=== PATIENT | male | born 1950 | race Caucasian/White ===

== ENCOUNTER 2018-07-16 14:49 | Emergency (ER) | payer OTHER ==
[~2018-07-16] VITALS: Ht 185.4 cm; Wt 67.1 kg
[2018-07-16 15:01] VITALS: BP_SYST 163
[2018-07-16] MEDS ORDERED: IBUPROFEN 600 MG TABLET PO ONE (15:45)
[2018-07-16 16:25] VITALS: BP_SYST 163
== END 2018-07-16 16:25 | disposition home or self-care (01) ==
LOC: SED 14:49
DX: S60.811A Abrasion of right wrist, initial encounter (principal); R07.89 Other chest pain; V43.52XA Car driver injured in collision with other type car in traffic accident, initial encounter; Y93.89 Activity, other specified; Y92.410 Unspecified street and highway as the place of occurrence of the external cause; Y99.8 Other external cause status; R03.0 Elevated blood-pressure reading, without diagnosis of hypertension
CPT/HCPCS: 71045; 99283

== ENCOUNTER 2023-06-29 21:58 | Inpatient (IN) | payer OTHER ==
[~2023-06-29] VITALS: Ht 185.4 cm; Wt 67.1 kg
[2023-06-29 22:06] VITALS: BP_SYST 180; PULSE 96; RESP 18; TEMP 97.5; O2SAT 97
[2023-06-30] MEDS: D10W 1,000 ML IV SCH (00:17)
[2023-06-30] MEDS: DEXTROSE 50% JECT 50 ML DISP.SYRIN IVP ONE (00:38)
[2023-06-30] MEDS: KETOROLAC TROMETHAMINE 60 MG/2 ML VIAL IM ONE (00:43)
[2023-06-30 05:12] LABS: BILIRUBIN,URINE NEGATIVE (NEGATIVE); BLOOD, URINE NEGATIVE (NEGATIVE); CLARITY/URINE CLEAR (CLEAR); COLOR,URINE YELLOW (YELLOW); GLUCOSE,URINE 3+ (NEGATIVE); KETONES,URINE NEGATIVE (NEGATIVE); LEUKOCYTE ESTERASE ,URINE NEGATIVE (NEGATIVE); NITRITE, URINE NEGATIVE (NEGATIVE); PROTEIN URINE NEGATIVE (NEGATIVE); UROBILINOGEN,URINE 0.2 (0.2-1.0)
[2023-06-30 05:15] LABS: BASOPHILS % (AUTO) 0.5 % (0.0-2.0); EOSINOPHILS % (AUTO) 0.6 % (0.0-4.0); HEMATOCRIT 36.9 % (36-54); HEMOGLOBIN 12.4 g/dL (14.0-18.0); LYMPHOCYTES # (AUTO) 1.2 K/uL (1.0-5.5); LYMPHOCYTES % (AUTO) 16.9 % (20.5-51.5); MEAN CORPUSCULAR HEMOGLOBIN 29 pg (27-31); MEAN CORPUSCULAR HGB CONC 34 % (32-36); MEAN CORPUSCULAR VOLUME 86 fL (79.0-98.0); MONOCYTES # (AUTO) 0.7 K/uL (0.0-1.0); MONOCYTES % (AUTO) 9.8 % (1.7-9.3); NEUTROPHILS # (AUTO) 5.3 K/uL (1.8-7.7); NEUTROPHILS % (AUTO) 72.2 % (40.0-70.0); PLATELET COUNT (AUTO) 175 K/uL (130-430); RED BLOOD CELL COUNT(AUTO) 4.31 MIL/uL (4.2-6.2); RED CELL DISTRIBUTION WIDTH 13.9 % (9.0-15.0); WHITE BLOOD COUNT (AUTO) 7.4 K/uL (4.8-10.8)
[2023-06-30 05:38] LABS: ANION GAP 7 (5-15); CALCIUM 8.4 mg/dL (8.4-11.0); CARBON DIOXIDE 29 mmol/L (23-29); CHLORIDE 96 mmol/L (98-107); CREATININE 0.98 mg/dL (0.55-1.30); GLUCOSE 387 mg/dL (74-106); POTASSIUM 4.2 mmol/L (3.5-5.1); SODIUM SERUM 132 mmol/L (136-145); UREA NITROGEN, BLOOD 12 mg/dL (8-21)
[2023-06-30 05:42] LABS: ALANINE AMINOTRANSFERASE 27 U/L (12-78); ALBUMIN 3.2 g/dL (3.4-4.8); ASPARTATE AMINOTRANSFERASE 9 U/L (10-37); BILIRUBIN,DIRECT 0.2 mg/dL (0.0-0.3); TOTAL BILIRUBIN 0.5 mg/dL (0.0-1.0); TOTAL PROTEIN, SERUM 6.9 g/dL (6.4-8.3)
[2023-06-30] MEDS ORDERED: HYDROcodone/ACETAMIN 5-325 MG TAB (NORCO/ VICODIN) PO PRN (08:30)
[2023-06-30] MEDS ORDERED: ACETAMINOPHEN 325 MG TABLET PO PRN ×2 (08:30→10:15)
[2023-06-30] MEDS ORDERED: MORPHINE 2 MG/ML INJ. SYRINGE IVP PRN (08:30)
[2023-06-30] MEDS ORDERED: ONDANSETRON HCL 4 MG/2 ML VIAL IVP PRN (08:30)
[2023-06-30] MEDS ORDERED: GLUCOSE (DEXTROSE) ORAL GEL -Adults PO PRN (08:45)
[2023-06-30] MEDS ORDERED: DEXTROSE 50% JECT 50 ML DISP.SYRIN IVP PRN (08:45)
[2023-06-30] MEDS ORDERED: INSNLG7030 SUBCUT (09:00)
[2023-06-30] MEDS ORDERED: TAMS0.4C96 PO (09:00)
[2023-06-30] MEDS ORDERED: ROSU40TA23 PO (09:00)
[2023-06-30] MEDS ORDERED: LATA2.5D14 EACH EYE (09:00)
[2023-06-30] MEDS ORDERED: LISI2.5T48 PO (09:00)
[2023-06-30] MEDS ORDERED: HUM10VIA3 SUBCUT (10:25)
[2023-06-30] MEDS ORDERED: INSULIN REGULAR, HUMAN 10 UNITS/0.1 ML, 3 ML VIAL ONE (12:58)
[2023-06-30] MEDS: INSULIN REGULAR, HUMAN 100 UNITS/ML, 3 ML VIAL (humuLIN R) SUBCUT PRN (13:00)
[2023-06-30 15:40] VITALS: BP_SYST 113; PULSE 77; RESP 18; TEMP 99.3; O2SAT 98
[2023-06-30 15:47] VITALS: BP_SYST 113; PULSE 77; RESP 18; TEMP 99.3
[2023-06-30 15:58] VITALS: O2SAT 99
[2023-06-30] MEDS ORDERED: INSULIN GLARGINE 100 UNITS/ML, 10 ML VIAL SUBCUT ONE (16:45)
[2023-06-30 20:36] VITALS: BP_SYST 115; PULSE 106; RESP 18; TEMP 98.9
[2023-06-30 20:37] VITALS: BP_SYST 115; PULSE 106; RESP 18; TEMP 98.9; O2SAT 98
[2023-06-30 20:39] VITALS: O2SAT 98
[2023-06-30] MEDS: INSULIN GLARGINE 100 UNITS/ML, 10 ML VIAL SUBCUT SCH (22:19)
[2023-07-01 00:16] VITALS: BP_SYST 114; PULSE 90; RESP 16; TEMP 97.8; O2SAT 99
[2023-07-01 06:44] LABS: BASOPHILS % (AUTO) 0.5 % (0.0-2.0); EOSINOPHILS # (AUTO) 0.2 K/uL (0.0-0.4); EOSINOPHILS % (AUTO) 3.4 % (0.0-4.0); HEMOGLOBIN 12.2 g/dL (14.0-18.0); LYMPHOCYTES # (AUTO) 1.5 K/uL (1.0-5.5); LYMPHOCYTES % (AUTO) 24.4 % (20.5-51.5); MEAN CORPUSCULAR HEMOGLOBIN 29 pg (27-31); MEAN CORPUSCULAR HGB CONC 34 % (32-36); MEAN CORPUSCULAR VOLUME 85 fL (79.0-98.0); MONOCYTES # (AUTO) 0.8 K/uL (0.0-1.0); MONOCYTES % (AUTO) 13.1 % (1.7-9.3); NEUTROPHILS # (AUTO) 3.5 K/uL (1.8-7.7); NEUTROPHILS % (AUTO) 58.6 % (40.0-70.0); PLATELET COUNT (AUTO) 161 K/uL (130-430); RED BLOOD CELL COUNT(AUTO) 4.23 MIL/uL (4.2-6.2); RED CELL DISTRIBUTION WIDTH 13.9 % (9.0-15.0)
[2023-07-01 07:00] LABS: PROTHROMBIN TIME 10.3 SECS (9.5-12.5)
[2023-07-01 07:16] LABS: ALANINE AMINOTRANSFERASE 26 U/L (12-78); ALBUMIN 2.8 g/dL (3.4-4.8); ANION GAP 5 (5-15); ASPARTATE AMINOTRANSFERASE < 5 U/L (10-37); CALCIUM 8.6 mg/dL (8.4-11.0); CARBON DIOXIDE 30 mmol/L (23-29); CHLORIDE 100 mmol/L (98-107); CREATININE 1.01 mg/dL (0.55-1.30); GLUCOSE 242 mg/dL (74-106); POTASSIUM 4.6 mmol/L (3.5-5.1); SODIUM SERUM 135 mmol/L (136-145); TOTAL BILIRUBIN 0.6 mg/dL (0.0-1.0); TOTAL PROTEIN, SERUM 6.5 g/dL (6.4-8.3); UREA NITROGEN, BLOOD 17 mg/dL (8-21)
[2023-07-01 08:06] LABS: HEPATITIS B CORE AB, TOTAL Negative (Negative); HEPATITIS B SURFACE AG Negative (Negative); HEPATITIS C VIRUS AB Non Reactive (Non Reactive)
[2023-07-01] MEDS: ATORVASTATIN 20 MG TABLET PO SCH (08:56)
[2023-07-01] MEDS: HYDROcodone/ACETAMIN 10-325 MG TAB PO PRN (08:56)
[2023-07-01] MEDS: TAMSULOSIN HCL 0.4 MG CAP PO SCH (08:56)
[2023-07-01 09:00] VITALS: BP_SYST 131; PULSE 111; RESP 20; TEMP 97.5; O2SAT 94; O2SAT 97
[2023-07-01 11:55] VITALS: BP_SYST 107; PULSE 90; RESP 16; TEMP 98.4; O2SAT 96
[2023-07-01] MEDS: INSULIN GLARGINE 100 UNITS/ML, 10 ML VIAL SUBCUT ONE (16:42)
[2023-07-01 16:50] VITALS: BP_SYST 106; PULSE 98; RESP 17; TEMP 98.4; O2SAT 93
[2023-07-01 19:54] VITALS: BP_SYST 119; PULSE 98; RESP 16; TEMP 98; O2SAT 98
[2023-07-01 20:00] VITALS: O2SAT 98
[2023-07-02] VITALS (7 sets, daily range): BP systolic 103–132; PULSE 85–100; RESP 16–18; TEMP 97.7–98.6; O2SAT 98–100
[2023-07-02] MEDS ORDERED: ROCURONIUM BROMIDE 10 MG/ML (ZEMURON) ONE (12:05)
[2023-07-02] MEDS ORDERED: PHENYLEPHRINE HCL 10 MG/ML VIAL (NEOSYNEPHRINE) ONE (12:05)
[2023-07-02] MEDS ORDERED: CEFAZOLIN 1 GM IVPB PREMIX 50 ML IV ONE (12:05)
[2023-07-02] MEDS ORDERED: TRANEXAMIC ACID 1,000 MG/10 ML VIAL ONE (12:05)
[2023-07-02] MEDS ORDERED: VANCOMYCIN HCL 1000 MG/VIAL IV ONE (12:05)
[2023-07-02] MEDS ORDERED: NEOSTIGMINE METHYLSULFATE 1 MG/ML, 10 ML VIAL ONE (12:05)
[2023-07-02] MEDS ORDERED: KETOROLAC TROMETHAMINE 30 MG VIAL ONE (12:05)
[2023-07-02] MEDS ORDERED: PROPOFOL 200MG/ 20ML VIAL (DIPRIVAN) IV ONE (12:05)
[2023-07-02] MEDS ORDERED: CEFAZOLIN 2 GM IVPB PREMIX 50 ML IV ONE (12:05)
[2023-07-02] MEDS ORDERED: BUPIVACAINE /PF 0.25% 30 ML VIAL INJ ONE (12:05)
[2023-07-02] MEDS ORDERED: SEVOFLURANE 15 MIN GAS INH ONE (12:05)
[2023-07-02] MEDS ORDERED: SUGAMMADEX SODIUM 200 MG/2 ML VIAL IV ONE (12:05)
[2023-07-02] MEDS ORDERED: ONDANSETRON HCL 4 MG/2 ML VIAL ONE (12:05)
[2023-07-02] MEDS ORDERED: NS 1000 ML IV.SOLN IV ONE (12:05)
[2023-07-02] MEDS ORDERED: MIDAZOLAM HCL 5 MG/5 ML VIAL ONE (12:05)
[2023-07-02] MEDS ORDERED: LIDOCAINE/EPI 1% 1:100000 20 ML VIAL ONE (12:05)
[2023-07-02] MEDS ORDERED: fentaNYL CITRATE/PF 100 MCG/2 ML AMP ONE (12:05)
[2023-07-02 12:17] LABS: BASOPHILS # (AUTO) 0.1 K/uL (0.0-0.2); BASOPHILS % (AUTO) 0.7 % (0.0-2.0); EOSINOPHILS # (AUTO) 0.2 K/uL (0.0-0.4); EOSINOPHILS % (AUTO) 2.1 % (0.0-4.0); HEMATOCRIT 34.4 % (36-54); HEMOGLOBIN 11.4 g/dL (14.0-18.0); LYMPHOCYTES # (AUTO) 1.8 K/uL (1.0-5.5); LYMPHOCYTES % (AUTO) 20.8 % (20.5-51.5); MEAN CORPUSCULAR HEMOGLOBIN 28 pg (27-31); MEAN CORPUSCULAR HGB CONC 33 % (32-36); MEAN CORPUSCULAR VOLUME 86 fL (79.0-98.0); MONOCYTES # (AUTO) 0.8 K/uL (0.0-1.0); MONOCYTES % (AUTO) 8.7 % (1.7-9.3); NEUTROPHILS # (AUTO) 5.9 K/uL (1.8-7.7); NEUTROPHILS % (AUTO) 67.7 % (40.0-70.0); PLATELET COUNT (AUTO) 162 K/uL (130-430); RED BLOOD CELL COUNT(AUTO) 4.02 MIL/uL (4.2-6.2); RED CELL DISTRIBUTION WIDTH 13.9 % (9.0-15.0)
[2023-07-02 12:20] LABS: WHITE BLOOD COUNT (AUTO) 8.7 K/uL (4.8-10.8)
[2023-07-02 12:42] LABS: ALANINE AMINOTRANSFERASE 20 U/L (12-78); ALBUMIN 3.1 g/dL (3.4-4.8); ANION GAP 5 (5-15); ASPARTATE AMINOTRANSFERASE 16 U/L (10-37); CALCIUM 8.7 mg/dL (8.4-11.0); CARBON DIOXIDE 30 mmol/L (23-29); CHLORIDE 103 mmol/L (98-107); CREATININE 0.93 mg/dL (0.55-1.30); GLUCOSE 119 mg/dL (74-106); SODIUM SERUM 138 mmol/L (136-145); TOTAL BILIRUBIN 0.6 mg/dL (0.0-1.0); TOTAL PROTEIN, SERUM 6.9 g/dL (6.4-8.3); UREA NITROGEN, BLOOD 17 mg/dL (8-21)
[2023-07-02] MEDS: BUPIVACAINE LIPOSOME/PF 266 MG/20 ML VIAL INFIL ONE (13:08)
[2023-07-02] MEDS: ACETAMINOPHEN I.V. 1000 MG 100 ML IV ONE (13:26)
[2023-07-02] MEDS ORDERED: HYDROmorphone 2 MG/ML VIAL IVP PRN (15:00)
[2023-07-02] MEDS: NACL 0.9% 1,000 ML IV SCH (15:00)
[2023-07-02] MEDS ORDERED: ONDANSETRON HCL 4 MG/2 ML VIAL IVP PRN (15:00)
[2023-07-02] MEDS ORDERED: NALOXONE HCL 0.4 MG/ML AMP (NARCAN) IVP PRN (15:00)
[2023-07-02] MEDS ORDERED: HYDROmorphone 1 MG/ML INJ. CARTRIDGE IVP PRN (15:00)
[2023-07-02] MEDS: ASPIRIN 81 MG TABLET(ECOTRIN) PO SCH (22:38)
[2023-07-02] MEDS: ceFAZolin SODIUM 2 GM in D5W 100 ML IV SCH (22:39)
[2023-07-03] VITALS (7 sets, daily range): BP systolic 110–124; PULSE 94–108; RESP 15–18; TEMP 98–99.6; O2SAT 94–99
[2023-07-03 05:40] LABS: BASOPHILS % (AUTO) 0.5 % (0.0-2.0); EOSINOPHILS # (AUTO) 0.1 K/uL (0.0-0.4); EOSINOPHILS % (AUTO) 1.1 % (0.0-4.0); HEMATOCRIT 26.9 % (36-54); HEMOGLOBIN 9.1 g/dL (14.0-18.0); LYMPHOCYTES # (AUTO) 1.2 K/uL (1.0-5.5); MEAN CORPUSCULAR HEMOGLOBIN 29 pg (27-31); MEAN CORPUSCULAR HGB CONC 34 % (32-36); MEAN CORPUSCULAR VOLUME 86 fL (79.0-98.0); MONOCYTES # (AUTO) 0.8 K/uL (0.0-1.0); MONOCYTES % (AUTO) 12.4 % (1.7-9.3); NEUTROPHILS # (AUTO) 4.3 K/uL (1.8-7.7); PLATELET COUNT (AUTO) 149 K/uL (130-430); RED BLOOD CELL COUNT(AUTO) 3.14 MIL/uL (4.2-6.2); WHITE BLOOD COUNT (AUTO) 6.4 K/uL (4.8-10.8)
[2023-07-03 06:10] LABS: ALANINE AMINOTRANSFERASE 18 U/L (12-78); ALBUMIN 2.4 g/dL (3.4-4.8); ANION GAP 4 (5-15); ASPARTATE AMINOTRANSFERASE 23 U/L (10-37); CALCIUM 8.1 mg/dL (8.4-11.0); CARBON DIOXIDE 28 mmol/L (23-29); CHLORIDE 105 mmol/L (98-107); CREATININE 1.01 mg/dL (0.55-1.30); GLUCOSE 177 mg/dL (74-106); POTASSIUM 4.8 mmol/L (3.5-5.1); SODIUM SERUM 137 mmol/L (136-145); TOTAL BILIRUBIN 0.7 mg/dL (0.0-1.0); TOTAL PROTEIN, SERUM 5.8 g/dL (6.4-8.3); UREA NITROGEN, BLOOD 20 mg/dL (8-21)
[2023-07-03] MEDS ORDERED: INSU100V9 SUBCUT (11:51)
[2023-07-03] MEDS ORDERED: INSU100V7 SUBCUT (11:51)
[2023-07-04] VITALS: BP_SYST 121; PULSE 96; RESP 16; TEMP 98.8; O2SAT 96
[2023-07-04 05:08] LABS: BASOPHILS % (AUTO) 0.6 % (0.0-2.0); EOSINOPHILS # (AUTO) 0.1 K/uL (0.0-0.4); EOSINOPHILS % (AUTO) 1.6 % (0.0-4.0); HEMATOCRIT 26.5 % (36-54); HEMOGLOBIN 9.1 g/dL (14.0-18.0); LYMPHOCYTES # (AUTO) 1.1 K/uL (1.0-5.5); LYMPHOCYTES % (AUTO) 15.9 % (20.5-51.5); MEAN CORPUSCULAR HEMOGLOBIN 29 pg (27-31); MEAN CORPUSCULAR HGB CONC 34 % (32-36); MEAN CORPUSCULAR VOLUME 85 fL (79.0-98.0); MONOCYTES % (AUTO) 14.2 % (1.7-9.3); NEUTROPHILS # (AUTO) 4.8 K/uL (1.8-7.7); NEUTROPHILS % (AUTO) 67.7 % (40.0-70.0); PLATELET COUNT (AUTO) 170 K/uL (130-430); RED CELL DISTRIBUTION WIDTH 13.6 % (9.0-15.0); WHITE BLOOD COUNT (AUTO) 7.1 K/uL (4.8-10.8)
[2023-07-04 05:38] LABS: ANION GAP 6 (5-15); CALCIUM 7.9 mg/dL (8.4-11.0); CARBON DIOXIDE 28 mmol/L (23-29); CHLORIDE 99 mmol/L (98-107); CREATININE 0.98 mg/dL (0.55-1.30); GLUCOSE 206 mg/dL (74-106); POTASSIUM 3.7 mmol/L (3.5-5.1); SODIUM SERUM 133 mmol/L (136-145); UREA NITROGEN, BLOOD 13 mg/dL (8-21)
[2023-07-04 09:27] VITALS: BP_SYST 139; PULSE 109; RESP 16; TEMP 98.1; O2SAT 98
[2023-07-04] MEDS ORDERED: MELO-89 PO (09:39)
[2023-07-04 11:13] VITALS: BP_SYST 135; PULSE 99; RESP 16; TEMP 99.1; O2SAT 97
[2023-07-04 13:57] VITALS: BP_SYST 135; PULSE 96; RESP 16; TEMP 99.1; O2SAT 97
== END 2023-07-04 14:40 | disposition home health service (06) | DRG 483 ==
LOC: SED 21:58 → STU 06-30 08:27 → SMU 07-01 16:08
PROVIDERS: ADMIT Family Medicine; ATTEND Family Medicine
PROC: 0LS40ZZ Reposition Left Upper Arm Tendon, Open Approach (ICD-10-PCS; 2023-07-02)
PROC: 0RHK04Z Insertion of Internal Fixation Device into Left Shoulder Joint, Open Approach (ICD-10-PCS; 2023-07-02)
PROC: 0RRK00Z Replacement of Left Shoulder Joint with Reverse Ball and Socket Synthetic Substitute, Open Approach (ICD-10-PCS; principal; 2023-07-02 13:34)
DX: S42.292A Other displaced fracture of upper end of left humerus, initial encounter for closed fracture (principal); E44.1 Mild protein-calorie malnutrition; Z68.1 Body mass index [BMI] 19.9 or less, adult; E11.649 Type 2 diabetes mellitus with hypoglycemia without coma; E11.65 Type 2 diabetes mellitus with hyperglycemia; N40.0 Benign prostatic hyperplasia without lower urinary tract symptoms; G56.82 Other specified mononeuropathies of left upper limb; W18.39XA Other fall on same level, initial encounter; Z79.899 Other long term (current) drug therapy; Y93.89 Activity, other specified; Y92.89 Other specified places as the place of occurrence of the external cause; Y99.8 Other external cause status; S44 Injury of nerves at shoulder and upper arm level
CPT/HCPCS: 36415; 71045; 71100; 73030; 73200-TC; 80048; 80053; 80076; 81001; 81003; 82948; 83037; 83605; 85025; 85610; 85730; 86704; 86706; 86803; 86886; 86900; 86901; 87040; 87340; 88305; 88311; 93005; 93306; 96372; 96374; 97110-GP; 97116-GP; 97530-GP; 99285; C9290; G0378; J0131; J0690; J1815; J1885; J2250; J2370; J2405; J2704; J2710; J3010; J3370; J3490; J7030; J7060